=== PATIENT | female | born 1945 | race Caucasian/White ===

== ENCOUNTER → 2021-07-05 12:30 | Outpatient (CLI) | payer MEDICARE, OTHER, SELFPAY ==
[2021-07-05 15:33] LABS: COVID19 -Nasal RAPID Negative (Negative)
== END ==
PROVIDERS: PCP Internal Medicine; Visit Provider Physical Medicine & Rehabilitation
DX: Z20.822 Contact with and (suspected) exposure to COVID-19 (principal)
CPT/HCPCS: 87635; C9803

== ENCOUNTER 2021-07-07 13:33 | Outpatient (CLI) | payer MEDICARE, OTHER, SELFPAY ==
[2021-07-07] VITALS (7 sets, daily range): BP systolic 122–188; BP diastolic 72–89; PULSE 66–77; RESP 12–22; TEMP 36.1; O2SAT 92–100
--- NOTE | 2021-07-07 13:35 | DI.RAD.S_ITS ---
PROCEDURE: PAIN L INTERLAMINAR/CAUDAL INJ INDICATIONS: SPONDYLOSIS COMPARISON: [facility], RG, XR L-SPINE 2-3V, 03/07/2021, 10:28. FINDINGS: Fluoroscopic spot filming was performed to verify placement of a spinal needle at the L5-S1 level, as labeled on the films. Appropriate location of the needle tip was confirmed by injection of iodinated contrast. IMPRESSION: No significant intraprocedural abnormality. Dictated by: Bryson Toney M.D. on 07/07/2021 at 13:59 Approved by: Bryson Toney M.D. on 07/07/2021 at 13:59
[2021-07-07] MEDS: MIDAZOLAM 5 MG/5 ML VIAL IV (14:25)
[2021-07-07] MEDS: fentaNYL 100 MCG/2 ML INJ 50 MCG IV (14:25)
[2021-07-07] MEDS: IOPAMIDOL 15 ML VIAL 3 ML INJ (14:39)
[2021-07-07] MEDS: BUPIVACAINE 0.25% (PF) VIAL 2 ML INJ (14:39)
[2021-07-07] MEDS: BETAMETHASONE 30 MG/5 ML MDV 12 MG INJ (14:40)
[2021-07-07] MEDS: DEXAMETHASONE 10 MG/ML VIAL 20 MG INJ (14:40)
--- NOTE | 2021-07-07 14:46 | PM.PROC.IR.1 ---
Date/Time/Diagnoses Date of procedure: 07/07/21 Time of procedure: 14:46 Pre-procedure diagnosis: 1. HNP WITH RADICULAR FEATURES, 2. MULTILEVEL CENTRAL STENOSIS, Post-procedure diagnosis: same Procedure Notes Procedure: 1. FLUOROSCOPICALLY GUIDED CONTRAST CONTROLLED INTERLAMINAR EPIDURAL STEROID INJECTION - L5/S1 Indications: Sarah is referred by Dr. Christianson for treatment of Bilateral Foraminal Stenosis L>R LE symptoms. Physician: Mj Castro Total Fluoroscopy time (seconds): 5 Total sedation minutes: 14 Complications: none Procedure in detail & Post-procedure care: FINDINGS Multilevel Central Spinal Stenosis with Nerve Root Compression DESCRIPTION OF PROCEDURE Fluoroscopically guided, contrast-controlled L5/S1 translaminar epidural steroid injection. Following review of allergy and review of potential side effects and complications, including, but not necessarily limited to, infection, allergic reaction, local tissue breakdown, temporary as well as permanent nerve injury, paralysis, stroke and possible , the patient indicated that the patient understood and agreed to proceed. An informed consent document was signed by the patient, witnessed by a nurse, and placed in the patient's chart. Additionally, other treatment options including modalities, medications, and physical therapy were reviewed with the patient. After review of previous anaesthesic history and IV conscious sedation the patient was deemed safe to proceed with today?s procedure with IV conscious sedation as ASA class II designation. Safety time-out was performed to confirm patient ID, procedure to be performed and site of procedure. IV sedation was accomplished with a combination of 2mg of Versed and 50mcg of Fentanyl administered by the RN after DO order, titrated to patient comfort during the course of the procedure while the patient remained responsive to all verbal commands. In the prone position, following sterile prep and drape of the lumbar region, the L5/S1 translaminar space was identified fluoroscopically. The skin was anesthetized via a 25-gauge, 1.5-inch needle with 1% lidocaine solution. At this point, a 22-gauge short bevel spinal needle was atraumatically introduced and advanced under fluoroscopic guidance into the region of the L5/S1 translaminar space. Depth was confirmed on lateral view. Radiological data, including multiple fluoroscopic views of the lumbar spine, reveal a spinal needle at the L5/S1 translaminar space. Lateral views then show placement of the needle in the epidural space. Subsequent views show contrast material flowing superiorly and inferiorly in the epidural space. No vascular or intrathecal uptake is observed. At this point, using loss of resistance technique with saline and air, the epidural space was entered. This was confirmed following negative aspiration with injection of approximately 1.5cc of Isovue 200, showing excellent epidural flow without vascular or intrathecal uptake. At this point, 1 cc of 1% lidocaine solution combined with 4cc or 20mg of dexamethasone and 12mg of betamethasone was injected without incident. The patent tolerated the procedure without signs of symptoms of complications prior to transfer to the recovery area for further monitoring. The patient was then transferred to the recovery area where they were observed for an appropriate period of time after the injection. The patient reported a VAS score of 6 prior to the procedure and a post-procedure VAS of 0. POST OP INSTRUCTIONS The patient was provided a Pain Log to continue to record their response to the target-specific procedure prior to follow-up visit with their referring physician. Additionally, specific post-injection care instructions and a contact number to our office were provided if concerns arise regarding possible complications associated with the procedure are suspected.
== END 2021-07-07 15:01 | disposition home or self-care (01) ==
LOC: RAD 13:34
PROVIDERS: PCP Internal Medicine; Referring Provider Physical Medicine & Rehabilitation; Visit Provider Physical Medicine & Rehabilitation
DX: M51.17 Intervertebral disc disorders with radiculopathy, lumbosacral region (principal); M48.07 Spinal stenosis, lumbosacral region
CPT/HCPCS: 62323; 99152; J0702; J1100; J2250; J3010

== ENCOUNTER → 2022-03-08 08:07 | Outpatient (CLI) | payer MEDICARE, OTHER, SELFPAY | PROVIDERS: Family Provider Internal Medicine; PCP Internal Medicine; Referring Provider Otolaryngology; Visit Provider Otolaryngology | DX: M48.02 Spinal stenosis, cervical region (principal); H90.A31 Mixed conductive and sensorineural hearing loss, unilateral, right ear with restricted hearing on the contralateral side; H93.11 Tinnitus, right ear; Z53.20 Procedure and treatment not carried out because of patient's decision for unspecified reasons ==

== ENCOUNTER → 2022-03-15 11:53 | Outpatient (CLI) | payer MEDICARE, OTHER, SELFPAY ==
--- NOTE | 2022-03-15 | DI.MRI.S_ITS ---
PROCEDURE: MR BRAIN (IAC) WWO CON INDICATIONS: TINNITUS TECHNIQUE: Noncontrast sagittal T1 spin echo, axial FLAIR, axial gradient echo, axial diffusion and ADC through the brain. Axial thin-slice 3D CISS, coronal TruFISP, axial T1 spin echo with fat saturation through the internal auditory canals. After the administration of contrast, thin slice axial and coronal T1 spin echo with fat saturation through the internal auditory canals, and axial and coronal and sagittal T1 spin echo with fat saturation through the brain. COMPARISON: [facility], MR, MR CERVICAL SPINE WO CON, 03/15/2022, 12:20. FINDINGS: Image quality: Excellent. Cerebellopontine angles: No cerebellopontine angle masses. The inner ear structures appear normally formed. No suspicious enhancement in the internal auditory canal or along the courses of the 7th and 8th cranial nerves. No glory vascular loops are seen into the internal auditory canals. CSF spaces: Ventricles are normal in size and shape. No extra-axial fluid collections. Basal cisterns are patent. Brain: No intracranial bleeds or mass effects. Dangelo-white matter interface is intact. No abnormal intracranial enhancement. Diffusion weighted images demonstrate no acute ischemic insults. Brainstem appears normal. Normal intravascular flow voids are present. Skull and face: Calvarial marrow signal is normal. Orbits appear normal. Sinuses: Sinuses and mastoids are clear. IMPRESSION: No imaging explanation is found for this patient's presenting symptoms. No masses or abnormal enhancement are seen within the cerebellopontine angle cisterns or within the internal auditory canals. Dictated by: Bryson Toney M.D. on 03/15/2022 at 14:03 Approved by: Bryson Toney M.D. on 03/15/2022 at 14:04
--- NOTE | 2022-03-15 11:57 | DI.MRI.S_ITS ---
PROCEDURE: MR CERVICAL SPINE WO CON INDICATIONS: Left-sided axial neck pain chronic TECHNIQUE: Noncontrast sagittal T1 spin echo and T2 fast spin echo, sagittal STIR, foraminal oblique sagittal T2 fast spin echo, and axial gradient echo or T2 fast spin echo through the cervical spine. COMPARISON: None. FINDINGS: Image quality: Excellent. Alignment and Curvature: There is trace, approximately 2 millimeters of C4-C5 anterolisthesis. Bone Marrow: Marrow demonstrates normal overall signal. Spinal Cord: Visualized spinal cord has normal size and signal. No cerebellar tonsillar herniation. Paraspinous Soft Tissues: No paravertebral masses. Prevertebral soft tissues are normal in thickness. C2-C3: Loss of disc signal. Mild bilateral facet hypertrophy. No central stenosis. No neural foraminal narrowing. No neural compression. C3-C4: Loss of disc signal. Moderate right and mild left facet hypertrophy. No central stenosis. Mild right neural foraminal narrowing. No neural compression. C4-C5: Loss of disc signal. Moderate bilateral facet hypertrophy. No central stenosis. Mild bilateral neural foraminal narrowing. No neural compression. C5-C6: Loss of disc signal and height. Moderate, diffuse disc bulge. Moderate-sized left central disc protrusion. Disc protrusion abuts and slightly contours the anterior left margin of the cervical spinal cord. Mild right and moderate left facet hypertrophy. Mild narrowing of the central canal. Mild right and severe left neural foraminal narrowing with compression of the exiting left C6 nerve root. C6-C7: Loss of disc signal and mild loss of disc height. Mild, diffuse disc bulge. Mild bilateral facet hypertrophy. Mild narrowing of the central canal. No neural foraminal narrowing. No neural compression. C7-T1: Loss of disc signal and height. Mild, diffuse disc bulge. No central stenosis. No neural foraminal narrowing. No neural compression. IMPRESSION: 1. Multilevel degenerative disc disease. 2. Multilevel facet arthropathy. 3. No severe central canal narrowing. 4. Severe left C5-C6 neural foraminal narrowing with compression of the exiting left C6 nerve root. 5. C5-C6 left central disc protrusion abuts and slightly flattens the anterior left margin of the cervical spinal cord. Dictated by: Fabby Tabor MD, PhD on 03/15/2022 at 14:35 Approved by: Fabby Tabor MD, PhD on 03/15/2022 at 14:49
== END ==
PROVIDERS: PCP Internal Medicine; Referring Provider Otolaryngology; Visit Provider Otolaryngology
DX: M48.02 Spinal stenosis, cervical region (principal); H93.11 Tinnitus, right ear; H90.A31 Mixed conductive and sensorineural hearing loss, unilateral, right ear with restricted hearing on the contralateral side; M50.31 Other cervical disc degeneration, high cervical region; M47.812 Spondylosis without myelopathy or radiculopathy, cervical region; M50.222 Other cervical disc displacement at C5-C6 level
CPT/HCPCS: 70553; 72141; A9579

== ENCOUNTER 2022-04-27 11:13 | Outpatient (CLI) | payer MEDICARE, OTHER, SELFPAY | END 2022-05-01 09:53 | disposition home or self-care (01) | LOC: PHYS 11:15 | PROVIDERS: Family Provider Internal Medicine; PCP Internal Medicine; Referring Provider Physical Medicine & Rehabilitation; Visit Provider Physical Medicine & Rehabilitation | DX: R20.2 Paresthesia of skin (principal); M54.12 Radiculopathy, cervical region | CPT/HCPCS: 95885; 95886; 95911 ==

== ENCOUNTER → 2023-01-31 | Outpatient (CLI) | payer MEDICARE, OTHER, SELFPAY ==
--- NOTE | 2023-01-31 10:02 | DI.RAD.S_ITS ---
Bone Density Report Name: ADAMARIS CHAHAL Age: 77 Sex: Female Ethnicity: White Date of : 1945 Indication: postmenopausal; screening for osteoporosis; Referring Provider: ARIA LAGUERRE Study: Bone densitometry was performed. Exam Date: January 31, 2023 Accession number: [id number] Bone Density: Region BMD T-score Z-score Classification AP Spine(L1-L4) 1.116 0.6 3.1 Normal Femoral Neck (Left) 0.768 -0.7 1.4 Normal Total Hip (Left) 0.982 0.3 2.2 Normal Femoral Neck (Right) 0.819 -0.3 1.9 Normal Total Hip (Right) 1.012 0.6 2.4 Normal Total Hip Mean 0.997 0.5 2.3 Normal World Health Organization criteria for BMD impression classify patients as: Normal (T-score at or above -1.0), Osteopenia (T-score between -1.0 and -2.5), or Osteoporosis (T-score at or below -2.5). 10-year Fracture Risk: FRAX not reported because: All T-scores for Spine Total, Hip Total, Femoral Neck at or above -1.0 Previous Exams: -- Region Exam Age BMD T-score BMD Change BMD Change Date g/cm2 vs Baseline vs Previous -- AP Spine (L1-L4) 01/31/2023 77 1.116 0.6 0.116 (11.6%)# 0.116 (11.6%)# 07/11/2010 65 1.000 -0.4 Total Hip(Left) 01/31/2023 77 0.982 0.3 -0.007 (-0.7%)# -0.007 (-0.7%)# 07/11/2010 65 0.989 0.4 Total Hip(Right) 01/31/2023 77 1.012 0.6 0.008 (0.8%)# 0.008 (0.8%)# 07/11/2010 65 1.004 0.5 -- *Denotes significance at 95% confidence level, LSC for AP Spine = 0.022 g/cm2, LSC for Total Hip = 0.027 g/cm2 # Denotes dissimilar scan types or analysis methods Impression: The patient has normal bone mass. No significant bone loss was observed. Discussion: BONE DENSITY IS ABOVE THE MINIMUM DESIRABLE LEVEL AT ALL SKELETAL SITES TESTED. This patient's bone mineral density is above the minimum desirable level (T-score -1.0 or better) at all sites measured. The patient should follow a healthful lifestyle (good nutrition with adequate calcium and vitamin D, and appropriate weight-bearing exercise). Follow-Up: Consider repeating this study in 5 years or sooner if there is some new clinical indication. Reported by: ALAN PRIDE MD on 01/31/2023 10:39:00 AM.
== END ==
PROVIDERS: Family Provider Internal Medicine; PCP Internal Medicine; Referring Provider Internal Medicine Medical Oncology; Visit Provider Internal Medicine Medical Oncology
DX: Z90.710 Acquired absence of both cervix and uterus (principal); Z13.820 Encounter for screening for osteoporosis; Z78.0 Asymptomatic menopausal state; C50.912 Malignant neoplasm of unspecified site of left female breast; Z79.811 Long term (current) use of aromatase inhibitors
CPT/HCPCS: 77080

== ENCOUNTER → 2023-05-25 09:50 | Outpatient (CLI) | payer MEDICARE, OTHER, SELFPAY ==
--- NOTE | 2023-05-25 09:51 | DI.US.S_ITS ---
LIMITED ULTRASOUND OF LEFT BREAST: 05/25/2023 CLINICAL: Palpable left breast lump. Comparison is made to exams dated: 05/25/2023 mammogram - [facility], 09/04/2022 specimen, 09/04/2022 specimen, 09/01/2022 breast MRI - [facility], 07/06/2022 mammogram, and 07/18/2022 mammogram - [facility]. Color flow and real-time ultrasound of the left breast 1-3 o'clock region were performed. Dangelo scale images of the real-time examination were reviewed. There is a benign 5.2 cm x 5.2 cm x 3.9 cm oval fluid collection with a septated internal wall in the left breast at 3 o'clock anterior depth 4 cm from the nipple. This oval fluid collection is anechoic with a well-defined boundary and internal echoes. This correlates as palpated and with mammography findings. Color flow imaging demonstrates that there is no vascularity present. IMPRESSION: BENIGN There is no sonographic evidence of malignancy. The 5.2 cm fluid collection in the left breast is consistent with a seroma and is benign. Exam findings were conveyed to the patient. Aspiration could be considered for symptomatic relief. Patient is advised to monitor for significant change. Clinical follow-up as needed. A 1 year screening mammogram is recommended. This exam was interpreted at Station ID: [id number]. Electronically Signed By: Musa Buckner M.D. slc/:05/25/2023 11:21:45 letter sent: Normal Exam Ultrasound BI-RADS: 2 Benign
--- NOTE | 2023-05-25 09:51 | DI.MG.S_ITS ---
BILATERAL DIGITAL DIAGNOSTIC MAMMOGRAM 3D/2D: 05/25/2023 CLINICAL: Left lump near scar from previous cancer. Due for bilateral routine. Comparison is made to exams dated: 07/06/2022 mammogram, 05/19/2021 mammogram, 12/04/2019 mammogram, 07/25/2022 mammogram - [facility], and 09/01/2022 breast MRI - [facility]. There are scattered areas of fibroglandular density in both breasts (category b / 25%-50% glandular tissue). There is a 6 cm oval mass with a circumscribed margin in the left breast at 1 o'clock anterior depth. This correlates as palpated and to post-operative changes. No other significant masses, calcifications, or other findings are seen in either breast. IMPRESSION: INCOMPLETE: NEEDS ADDITIONAL IMAGING EVALUATION The 6 cm oval mass in the left breast is most consistent with a seroma and is indeterminate. A targeted ultrasound is recommended and will immediately follow. This exam was interpreted at Station ID: [id number]. NOTE: For mammograms, a report in lay terms will be sent to the patient. Approximately 15% of breast malignancies will not be visualized mammographically. In the management of a palpable breast mass, a negative mammogram must not discourage biopsy of a clinically suspicious lesion. Electronically Signed By: Musa Buckner M.D. slc/:05/25/2023 11:16:00 ACR BI-RADS Category 0: Incomplete [id number]
== END ==
PROVIDERS: Family Provider Internal Medicine; PCP Internal Medicine; Referring Provider Internal Medicine; Visit Provider Internal Medicine
DX: R92.8 Other abnormal and inconclusive findings on diagnostic imaging of breast (principal); C50.912 Malignant neoplasm of unspecified site of left female breast; N63.21 Unspecified lump in the left breast, upper outer quadrant
CPT/HCPCS: 76642; 77066; G0279

== ENCOUNTER → 2025-01-21 13:34 | Outpatient (CLI) | payer MEDICARE, OTHER, SELFPAY ==
--- NOTE | 2025-01-21 13:36 | DI.RAD.S_ITS ---
PROCEDURE: XR LUMBAR SPINE MIN 4V INDICATIONS: BACK PAIN TECHNIQUE: 5 views of the lumbar spine were acquired, including bilateral oblique views. COMPARISON: None. FINDINGS: Bones: 5 nonrib-bearing vertebrae are present. There is normal bony alignment. No vertebral body compression fractures. No suspicious bony lesions. Disc space narrowing and hypertrophic is noted throughout the exam particularly in the mid spine Soft tissues: Atherosclerotic aortic vascular calcification. Surgical clips noted in the pelvis and right upper quadrant Oblique images: No pars defects. IMPRESSION: Multilevel degenerative disc disease and arthropathy. Approved by: Flaco Conley M.D. on 01/21/2025 at 15:02
== END ==
PROVIDERS: Family Provider Internal Medicine; PCP Student in an Organized Health Care Education/Training Program; Referring Provider Physical Medicine & Rehabilitation; Visit Provider Physical Medicine & Rehabilitation
DX: M47.26 Other spondylosis with radiculopathy, lumbar region (principal); M51.16 Intervertebral disc disorders with radiculopathy, lumbar region; M48.062 Spinal stenosis, lumbar region with neurogenic claudication; M47.892 Other spondylosis, cervical region; G56.03 Carpal tunnel syndrome, bilateral upper limbs
CPT/HCPCS: 72110; 99214

== ENCOUNTER 2025-01-22 14:43 | Outpatient (CLI) | payer MEDICARE, OTHER, SELFPAY ==
[2025-01-22] VITALS (8 sets, daily range): BP systolic 131–159; BP diastolic 65–85; PULSE 68–83; RESP 14–16; TEMP 36.2; O2SAT 97–99
[2025-01-22] MEDS: MIDAZOLAM 2 MG/2 ML VIAL IV (16:20)
[2025-01-22] MEDS: DEXAMETHASONE 10 MG/ML VIAL INJ (16:24)
[2025-01-22] MEDS: BETAMETHASONE 30 MG/5 ML MDV 12 MG INJ (16:25)
[2025-01-22] MEDS: iopamidoL 15 ML VIAL 3 ML INJ (16:25)
[2025-01-22] MEDS: BUPIVACAINE 0.25% (PF) VIAL 2 ML INJ (16:26)
--- NOTE | 2025-01-22 16:44 | P.PCN_ITS ---
Date/Time/Diagnoses Date of procedure: 01/22/25 Time of procedure: 16:44 Pre-procedure diagnosis: 1. HNP WITH RADICULAR FEATURES, 2. MULTILEVEL CENTRAL STENOSIS, Post-procedure diagnosis: same Procedure Notes Procedure: 1. FLUOROSCOPICALLY GUIDED CONTRAST CONTROLLED INTERLAMINAR EPIDURAL STEROID INJECTION -L4/5 Indications: Sarah is referred by Dr. Christianson for treatment of Bilateral Foraminal Stenosis R>L LE symptoms. Physician: Mj Castro Total Fluoroscopy time (seconds): 5 Total sedation minutes: 10 Complications: none Procedure in detail & Post-procedure care: FINDINGS Multilevel Central Spinal Stenosis with Nerve Root Compression DESCRIPTION OF PROCEDURE Fluoroscopically guided, contrast-controlled L4/5 translaminar epidural steroid injection. Following review of allergy and review of potential side effects and complications, including, but not necessarily limited to, infection, allergic reaction, local tissue breakdown, temporary as well as permanent nerve injury, paralysis, stroke and possible , the patient indicated that the patient understood and agreed to proceed. An informed consent document was signed by the patient, witnessed by a nurse, and placed in the patient's chart. Additionally, other treatment options including modalities, medications, and physical therapy were reviewed with the patient. After review of previous anaesthesic history and IV conscious sedation the patient was deemed safe to proceed with today?s procedure with IV conscious sedation as ASA class II designation. Safety time-out was performed to confirm patient ID, procedure to be performed and site of procedure. IV sedation was accomplished with a combination of 2mg of Versed was administered by the RN after DO order, titrated to patient comfort during the course of the procedure while the patient remained responsive to all verbal commands In the prone position, following sterile prep and drape of the lumbar region, the L4/5 translaminar space was identified fluoroscopically. The skin was anesthetized via a 25-gauge, 1.5inch needle with 1% lidocaine solution. At this point, a 22-gauge short bevel spinal needle was atraumatically introduced and advanced under fluoroscopic guidance into the region of the L4/5 translaminar space. Depth was confirmed on lateral view. Radiological data, including multiple fluoroscopic views of the lumbar spine, reveal a spinal needle at the L4/5 translaminar space. Lateral views then show placement of the needle in the epidural space. Subsequent views show contrast material flowing superiorly and inferiorly in the epidural space. No vascular or intrathecal uptake is observed. At this point, using loss of resistance technique with saline and air, the epidural space was entered. This was confirmed following negative aspiration with injection of approximately 1.5cc of Isovue 200, showing excellent epidural flow without vascular or intrathecal uptake. At this point, 1cc of 1% lidocaine solution combined with 3cc or 10mg of dexamethasone and 12mg betamethasone was injected without incident. The patient tolerated the procedure well without signs or symptoms of complications prior to transfer to the recovery area continued monitoring without incident. The patient was then transferred to the recovery area where they were observed for an appropriate period of time after the injection. The patient reported a VAS score of 6 prior to the procedure and a post- procedure VAS of 0. POST OP INSTRUCTIONS The patient was provided a Pain Log to continue to record their response to the target-specific procedure prior to follow-up visit with their referring physician. Additionally, specific post-injection care instructions and a contact number to our office were provided if concerns arise regarding possible complications associated with the procedure are suspected.
== END 2025-01-22 16:50 | disposition home or self-care (01) ==
PROVIDERS: Family Provider Internal Medicine; PCP Student in an Organized Health Care Education/Training Program; Referring Provider Student in an Organized Health Care Education/Training Program; Visit Provider Physical Medicine & Rehabilitation
DX: M51.16 Intervertebral disc disorders with radiculopathy, lumbar region (principal); M48.061 Spinal stenosis, lumbar region without neurogenic claudication
CPT/HCPCS: 62323; 99152; J0702; J1100; J2250; J3490

== ENCOUNTER 2025-06-30 13:44 | Outpatient (CLI) | payer MEDICARE, OTHER, SELFPAY ==
[2025-06-30] VITALS (9 sets, daily range): BP systolic 145–196; BP diastolic 88–117; PULSE 64–78; RESP 12–19; TEMP 36.1; O2SAT 94–100
--- NOTE | 2025-06-30 15:03 | P.PCN_ITS ---
Date/Time/Diagnoses Date of procedure: 06/30/25 Time of procedure: 15:50 Pre-procedure diagnosis: 1. FACET ARTHROPATHY Post-procedure diagnosis: same Procedure Notes Procedure: 1. BILATERAL- L4, L5 and S1 DIAGNOSTIC MB BLOCKS with SA Anesthetic Indications: Sarah is referred by Dr. Christianson for treatment of Bilateral Axial LBP. Physician: Mj Castro Total Fluoroscopy time (seconds): 12 Total sedation minutes: 18 Complications: none Procedure in detail & Post-procedure care: DESCRIPTION OF PROCEDURE Fluoroscopically guided, contrast-controlled bilateral L4, L5 and S1 medial branch blocks with 0.5cc of 2% Lidocaine. Following review of allergy and review of potential side effects and complications, including, but not necessarily limited to, infection, allergic reaction, local tissue breakdown, nerve injury, paralysis, stroke and possible , the patient indicated that the patient understood and agreed to proceed. An informed consent document was signed by the patient, witnessed by a nurse, and placed in the patient's chart. After review of previous anaesthesic history and IV conscious sedation the patient was deemed safe to proceed with today's procedure with IV conscious sedation as ASA class II designation. Safety time-out was performed to confirm patient ID, procedure to be performed and site of procedure. IV sedation was accomplished with a combination of 2mg of Versed was administered by the RN after DO order, titrated to patient comfort during the course of the procedure while the patient remained responsive to all verbal commands In the prone position, following sterile prep and drape of the lumbar region, the right L4, L5 and S1 anatomical location of the medial branch of the dorsal ramus was identified fluoroscopically. Subsequently an anesthetic skin wheal using 1% lidocaine solution was initiated at each of the anatomical spots. Subsequently then a 22-gauge 3.5-inch spinal needle was atraumatically introduced and advanced under fluoroscopic guidance at each of the corresponding sites at the right L4, L5 and S1 MB. After negative aspiration, 0.2cc of Isovue 200 was injected, confirming placement without vascular or intrathecal uptake. Subsequently then 0.5cc of 2% Lidocaine solution was injected at each of the corresponding sites at the right L4, L5 and S1 medial branch locations. The identical procedure was replicated on the left. The patient tolerated the procedure well without signs or symptoms of complications prior to transfer to the recovery area continued monitoring without incident. Post-procedure, the patient was monitored initiating provocative activities to measure the amount of relief from block of the facetogenic pain. The patient reported a VAS of 7 prior to the procedure and a post-procedure VAS of 1. It has been a pleasure to assist in the diagnostic and therapeutic care of your patient. POST OP INSTRUCTIONS The patient was provided with a Pain Log to complete over the next several hours and subsequent days prior to the patient's follow up with the ordering physician. If the patient has usability strategist relief to the solution applied, then they may be a candidate for medial branch rhizotomy. The patient is aware, was provided, once again, with a Pain Log and will follow up with the referring physician for review and clinical correlation
[2025-06-30] MEDS: MIDAZOLAM 2 MG/2 ML VIAL IV (15:28)
[2025-06-30] MEDS: LIDOCAINE 1% 20 ML 5 ML INJ (15:38)
[2025-06-30] MEDS: LIDOCAINE 2% INJ MDV 20ML 5 ML INJ (15:38)
== END 2025-06-30 16:08 | disposition home or self-care (01) ==
PROVIDERS: Family Provider Internal Medicine; PCP Student in an Organized Health Care Education/Training Program; Referring Provider Student in an Organized Health Care Education/Training Program; Visit Provider Physical Medicine & Rehabilitation
DX: M47.816 Spondylosis without myelopathy or radiculopathy, lumbar region (principal); M47.817 Spondylosis without myelopathy or radiculopathy, lumbosacral region
CPT/HCPCS: 64493; 64494; 99152; J2250

== ENCOUNTER 2025-08-25 10:18 | Outpatient (CLI) | payer MEDICARE, OTHER, SELFPAY ==
[2025-08-25] VITALS (12 sets, daily range): BP systolic 97–155; BP diastolic 62–80; PULSE 61–68; RESP 14–16; TEMP 36.1; O2SAT 95–100
[2025-08-25] MEDS: MIDAZOLAM 2 MG/2 ML VIAL IV (12:09)
[2025-08-25] MEDS: LIDOCAINE 1% 20 ML 5 ML INJ (12:13)
[2025-08-25] MEDS: MIDAZOLAM 2 MG/2 ML VIAL 1 MG IV (12:21)
--- NOTE | 2025-08-25 12:51 | P.PCN_ITS ---
Date/Time/Diagnoses Date of procedure: 08/25/25 Time of procedure: 12:51 Pre-procedure diagnosis: 1. RECALCITRANT FACET ARTHROPATHY Post-procedure diagnosis: same Procedure Notes Procedure: 1. BILATERAL L4 AND L5 MEDIAL BRANCH RADIOFREQUENCY NEUROTOMY AND S1 DORSAL RAMUS BRANCH RADIOFREQUENCY NEUROTOMY Indications: Sarah is referred by Dr. Grimm for treatment of facet arthropathy. Physician: Mj Castro Total Fluoroscopy time (seconds): 20 Total sedation minutes: 36 Complications: none Procedure in detail & Post-procedure care: DESCRIPTION OF PROCEDURE Bilateral L4 and L5 medial branch radiofrequency neurotomy and bilateral S1 dorsal ramus radiofrequency neurotomy under fluoroscopy with conscious sedation. The patient is well known to this clinic having undergone previous facet injections with good but temporary relief. The patient has experienced appropriate, concordant relief with previous facet and median branch blocks but the patient's pain has been recalcitrant to further conservative measures. Therefore, based upon the patient's relief and persistent symptoms, the patient is considered an appropriate candidate for facet rhizotomy. All of the patient's questions regarding the risks versus benefits of the procedure, including, but not limited to, bleeding, infection, temporary as well as lasting nerve injury, paralysis, stroke, and , as well treatment alternatives were answered to satisfaction. After obtaining informed consent, denial of pertinent drug allergies, as well as being made aware of the potential risks of bleeding, infection, spinal cord trauma, paralysis, temporary and permanent nerve damage, seizure, stroke, and possible , the patient was brought to the fluoroscopy suite and positioned prone on the fluoroscopy table. The lumbar region was prepped in usual sterile fashion and covered with a fenestrated drape in the usual sterile fashion. Appropriate monitors applied including pulse oximeter, pulse, and blood pressure for regular monitoring throughout the procedure. After review of previous anaesthesic history and IV conscious sedation the patient was deemed safe to proceed with today's procedure with IV conscious sedation as ASA class II designation. Safety time-out was performed to confirm patient ID, procedure to be performed and site of procedure. IV sedation was accomplished with a combination of 2mg of Versed administered by the RN after DO order, titrated to patient comfort during the course of the procedure while the patient remained responsive to all verbal commands. After local infiltration using 1% lidocaine, under fluoroscopic guidance, a 10- cm RF insulated needle with a 10-mm active tip was positioned parallel to the junction of the right sacral ala and the superior articulating process where the S1 dorsal ramus resides. Needle placement was confirmed with motor stimulation of .5v on the right which produced local stimulation without radicular component. The stimulation was then increased to 2v with, once again, only local multifidus stimulation without radicular component. The needle was then removed and the identical procedure was performed along the length of the right L5 medial branch with motor stimulation at .7v on the right. The identical procedure was once again performed along the length of the right L4 medial branch with motor stimulation of .5v on the right. The medial branches were then anesthetised with 0.5% Marcaine. This was then followed by two discreet lesions performed at 80 degrees Celsius for 90 seconds each. The identical procedure was repeated on the left. The patient tolerated the procedure well without signs or symptoms of complications prior to transfer to the recovery area continued monitoring without incident. The patient was then transferred to the recovery area where they were observed for an appropriate period of time after the injection. The patient reported a VAS score of 9 prior to the procedure and a post-procedure VAS of 0. POST OP INSTRUCTIONS The patient was provided a Pain Log to continue to record the patient's response to the target-specific procedure prior to the patient's follow-up visit with the referring physician. Additionally, specific post-injection care instructions and a contact number to our office were provided if concerns arise regarding possible complications associated with the procedure are suspected.
== END 2025-08-25 13:08 | disposition home or self-care (01) ==
LOC: RAD 10:19
PROVIDERS: Family Provider Internal Medicine; PCP Student in an Organized Health Care Education/Training Program; Referring Provider Physical Medicine & Rehabilitation; Visit Provider Physical Medicine & Rehabilitation
DX: M47.816 Spondylosis without myelopathy or radiculopathy, lumbar region (principal); M47.817 Spondylosis without myelopathy or radiculopathy, lumbosacral region
CPT/HCPCS: 64635; 64636; 99152; 99153; J2250